=== PATIENT | male | born 1960 | race Caucasian/White ===

== ENCOUNTER 2020-09-20 10:04 | Emergency (ER) | payer OTHER ==
[2020-09-20 10:47] LABS: BASOPHIL 0.3 % (0-2); EOSINOPHIL 0.4 % (0-5); HCT 46.8 % (42.0-52.0); HGB 15.4 g/dl (13.2-18.0); LYMPHOCYTE 25.5 % (15-48); MCH 29.6 pg (25.0-31.0); MCHC 32.9 g/dL (32.0-36.0); MCV 89.8 fL (78.0-100.0); MONOCYTE 6.6 % (0-12); MPV 10.7 fL (6.0-9.5); NEUTROPHIL 66.7 % (41-80); NRBC 0; PLT 175 K/uL (150-400); RBC 5.21 M/uL (4.70-6.00); RDW 13.2 % (11.5-14.0); WBC 7.8 K/uL (4.0-10.5)
[2020-09-20 10:52] LABS: INR 1.03 (0.9-1.2); PROTHROMBIN TIME 12.8 SECONDS (11.4-13.6); PTT 29.1 SECONDS (22.2-34.7)
[2020-09-20 10:53] LABS: D-DIMER 1.95 ug/mLFEU (0.00-0.41)
[2020-09-20 11:12] LABS: LACTIC ACID 1.8 mmol/L (0.4-1.9)
[2020-09-20 11:14] LABS: PRO-BNP 78 pg/mL (<125)
[2020-09-20 11:15] LABS: ALBUMIN 3.5 g/dL (3.4-5.0); BUN/CREAT RATIO (CALC) 15.4 RATIO; CREATININE 0.78 mg/dL (0.67-1.17); GLOBULIN (CALCULATION) 5.4 g/dL; POTASSIUM 4.6 mmol/L (3.5-5.1); TOTAL PROTEIN 8.9 g/dL (6.4-8.2)
[2020-09-20] MEDS ORDERED: MUCINEX D ER 61 EACH PO (14:23)
[2020-09-20] MEDS ORDERED: MOXIFLOXACIN H400 MG PO (14:23)
[2020-09-20] MEDS ORDERED: VENTOLIN HFA IN18 GM INH (14:23)
== END 2020-09-20 14:30 | disposition home or self-care (01) ==
LOC: FER 10:04
PROVIDERS: Internal Medicine
DX: J18.1 Lobar pneumonia, unspecified organism (principal); R16.1 Splenomegaly, not elsewhere classified; R00.0 Tachycardia, unspecified; R42 Dizziness and giddiness; F17.210 Nicotine dependence, cigarettes, uncomplicated; Z85.820 Personal history of malignant melanoma of skin; Z88.0 Allergy status to penicillin; Z20.822 Contact with and (suspected) exposure to COVID-19
CPT/HCPCS: 36415; 71045; 71275; 80053; 83605; 83880; 84145; 84484; 85025; 85379; 85610; 85730; 87040; 93005; J0696; J7030; Q9967; U0002